=== PATIENT | male | born 2000 | race Caucasian/White ===

== ENCOUNTER 2019-09-16 15:19 | Emergency (ER) | payer SELFPAY ==
[2019-09-16 15:24] VITALS: BP 141/76
--- NOTE | 2019-09-16 16:30 | RADIOLOGY REPORT (SQ) ---
EXAM DESCRIPTION: FOOT RIGHT COMPLETE COMPLETED DATE/TIME: 09/16/2019 4:20 pm REASON FOR STUDY: pain, rolled foot COMPARISON: None. NUMBER OF VIEWS: Three views. TECHNIQUE: AP, lateral and oblique radiographic images acquired of the right foot. LIMITATIONS: None. FINDINGS: MINERALIZATION: Normal. BONES: No acute fracture or dislocation. No worrisome bone lesions. JOINTS: No effusions. SOFT TISSUES: No soft tissue swelling. No foreign body. OTHER: No other significant finding. IMPRESSION: NEGATIVE STUDY OF THE RIGHT FOOT. NO RADIOGRAPHIC EVIDENCE OF ACUTE INJURY. TECHNICAL DOCUMENTATION: JOB ID: [id number] 2010 [employer]- All Rights Reserved Reading location - IP/workstation name: [email or web address]
--- NOTE | 2019-09-16 16:49 | ER Document Report ---
HPI - HPI Patient complains to provider of: right foot pain Time Seen by Provider: 09/16/19 16:02 Onset: Yesterday Quality of pain: Achy Pain Level: 4 Context: 19-year-old male presents emergency department complaints of right foot pain. Reports he rolled his foot last week. Reports is been hurting since. Patient has been able to walk around without any problems. Denies past medical history of injury to the foot. No other complaints such as fever vomiting diarrhea. Associated Symptoms: None Exacerbated by: Walking Relieved by: Denies Similar symptoms previously: No Recently seen / treated by doctor: No - CONSTITUTIONAL Constitutional: DENIES: Fever - RESPIRATORY Respiratory: REPORTS: Coughing - today - DERM Skin Color: Normal Past Medical History - General Information source: Patient - Social History Smoking Status: Current Every Day Smoker Cigarette use (# per day): Yes Frequency of alcohol use: Social Drug Abuse: None Family History: None Patient has suicidal ideation: No Patient has homicidal ideation: No - Medical History Medical History: Negative Past Surgical History: Reports: Hx Orthopedic Surgery Vertical Provider Document - CONSTITUTIONAL Agree With Documented VS: Yes Exam Limitations: No Limitations General Appearance: WD/WN, No Apparent Distress - INFECTION CONTROL TRAVEL OUTSIDE OF THE [place] IN LAST 30 DAYS: No - HEENT HEENT: Atraumatic, Normocephalic. negative: Conjuctival Injection - NECK Neck: Supple - RESPIRATORY Respiratory: No Respiratory Distress - CARDIOVASCULAR Cardiovascular: Regular Rate - MUSCULOSKELETAL/EXTREMETIES Musculoskeletal/Extremeties: MAEW, FROM, Tender - Patient complains of right lateral foot pain no obvious deformity pedal pulse +3 cap refill less than 2 seconds. No erythema no swelling no warmth - NEURO Level of Consciousness: Awake, Alert, Appropriate Motor/Sensory: No Motor Deficit - DERM Integumentary: Warm, Dry Course - Re-evaluation Re-evalutation: 09/16/19 16:47 Patient instructed on negative foot x-ray. Instructed on ibuprofen rest ice packs follow-up with orthopedics as indicated for continued pain. He verbalized understand all instructions. Foot X-Ray 09/16/19 16:05 IMPRESSION: NEGATIVE STUDY OF THE RIGHT FOOT. NO RADIOGRAPHIC EVIDENCE OF ACUTE INJURY. - Vital Signs Vital signs: Temp Pulse Resp BP Pulse Ox 98.7 F 97 16 141/76 H 96 09/16/19 15:23 09/16/19 15:23 09/16/19 15:23 09/16/19 15:23 09/16/19 15:23 - Diagnostic Test Radiology reviewed: Image reviewed, Reports reviewed Discharge - Discharge Clinical Impression: Right foot pain Condition: Stable Disposition: HOME, SELF-CARE Instructions: Use of Xydp-Nln-Wgyhrok Ibuprofen ([facility]), Ice & Elevation ([facility]) Additional Instructions: *You have been evaluated for foot pain *Your x-ray was negative for an acute fracture *Rest/Ice/Elevate foot *Follow up with orthopedics *Take ibuprofen as indicated for pain *Return to ED for worsening condition, changes, needs Monitor your blood pressure. Your blood pressure was elevated today. This may be because you were anxious, in pain or because you need medication. It is important to follow up with your primary care provider for full evaluation. Forms: Elevated Blood Pressure
== END 2019-09-16 17:15 | disposition home or self-care (01) ==
LOC: ER 15:19
DX: M79.671 Pain in right foot (principal); X50.9XXA Other and unspecified overexertion or strenuous movements or postures, initial encounter; R05 Cough; F17.210 Nicotine dependence, cigarettes, uncomplicated
CPT/HCPCS: 99283

== ENCOUNTER 2019-10-13 22:02 | Emergency (ER) | payer SELFPAY ==
--- NOTE | 2019-10-13 22:34 | ER Document Report ---
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 States hearing is started to return in the left ear. He has not had cold or congestion recently. No fevers. Patient was feeling fine up until that point. No chest pain no shortness of breath. He was not using headphones. I have greeted and performed a rapid initial assessment of this patient. A comprehensive ED assessment and evaluation of the patient, analysis of test results and completion of the medical decision making process will be conducted by additional ED providers PHYSICAL EXAMINATION: Serous fluid is noted behind both tympanic membranes with some small air bubbles behind the left tympanic membrane. There is no visible cerumen impaction. No nystagmus. Patient is answering all questions appropriately he is moving all extremities individually and intact. No visible facial droop. No sensation change between the left and right sides of the face I have greeted and performed a rapid initial assessment of this patient. A comprehensive ED assessment and evaluation of the patient, analysis of test results and completion of medical decision making process will be conducted by an additional ED providers. TRAVEL OUTSIDE OF THE [place] IN LAST 30 DAYS: No - Related Data Allergies/Adverse Reactions: No Known Allergies Allergy (Verified 09/16/19 16:10) Past Medical History Past Surgical History: Reports: Hx Orthopedic Surgery Physical Exam - Vital signs Vitals: Temp Pulse Resp BP Pulse Ox 99.6 F 90 16 152/86 H 98 10/13/19 22:08 10/13/19 22:08 10/13/19 22:08 10/13/19 22:08 10/13/19 22:08 Course - Vital Signs Vital signs: Temp Pulse Resp BP Pulse Ox 99.6 F 90 16 152/86 H 98 10/13/19 22:08 10/13/19 22:08 10/13/19 22:08 10/13/19 22:08 10/13/19 22:08
[2019-10-13] MEDS ORDERED: NAPROXEN 250 MG TABLET PO ONE (22:39)
--- NOTE | 2019-10-13 23:30 | RADIOLOGY REPORT (SQ) ---
CT HEAD WITHOUT IV CONTRAST EXAM DATE: 10/13/2019 10:32 PM CDT HISTORY: Dizziness. COMPARISON: None. TECHNIQUE: CT scan of the brain without IV contrast. This exam was performed according to our departmental dose-optimization program, which includes automated exposure control, adjustment of the mA and/or kV according to patient size and/or use of iterative reconstruction technique. FINDINGS: The ventricles, cisterns, and sulci are age-appropriate. No evidence of acute infarction, intracranial hemorrhage, extra-axial fluid collection, or midline shift. There is opacification of left-sided ethmoid air cells. The paranasal sinuses are clear however. No depressed skull fracture. IMPRESSION: 1. No acute intracranial findings. 2. Findings suggestive of left-sided mastoiditis, age indeterminate.
[2019-10-14 00:28] LABS: HEMOGLOBIN 15.3 g/dL (13.5-17.0); RED BLOOD COUNT 5.27 10^6/uL (4.35-5.55); RED CELL DISTRIBUTION WIDTH 13.5 % (11.5-14.0)
[2019-10-14 00:33] LABS: HEMATOCRIT 44.4 % (37.9-51.0); MEAN CORPUSCULAR HEMOGLOBIN 29.1 pg (27.0-33.4); MEAN CORPUSCULAR HGB CONC 34.5 g/dL (32.0-36.0); MEAN CORPUSCULAR VOLUME 84 fl (80-97); PLATELET COUNT 227 10^3/uL (150-450); WHITE BLOOD COUNT 20.2 10^3/uL (4.0-10.5)
[2019-10-14] MEDS ORDERED: AMOXICILLIN TR/POT CLAVULANATE 875-125 MG TAB PO ONE (00:39)
[2019-10-14 00:46] LABS: ALBUMIN 4.7 g/dL (3.5-5.0); ALKALINE PHOSPHATASE 56 U/L (38-126); ANION GAP 7 (5-19); ASPARTATE AMINO TRANSFERASE 21 U/L (17-59); BILIRUBIN,TOTAL 0.9 mg/dL (0.2-1.3); BLOOD UREA NITROGEN 11 mg/dL (7-20); CALCIUM 9.5 mg/dL (8.4-10.2); CARBON DIOXIDE 26 mmol/L (22-30); CHLORIDE 104 mmol/L (98-107); GLUCOSE 101 mg/dL (75-110); POTASSIUM 4.3 mmol/L (3.6-5.0); TOTAL PROTEIN 7.5 g/dL (6.3-8.2)
[2019-10-14 00:55] LABS: ABSOLUTE LYMPHOCYTES# (MANUAL) 1.2 10^3/uL (0.5-4.7); ABSOLUTE MONOCYTES # (MANUAL) 1.4 10^3/uL (0.1-1.4); BAND NEUTROPHILS % (MANUAL) 2 % (3-5); BASOPHILS % (MANUAL) 0 % (0-2); EOSINOPHILS % (MANUAL) 2 % (0-6); LYMPHOCYTES % (MANUAL) 6 % (13-45); MONOCYTES % (MANUAL) 7 % (3-13); PLATELET COMMENT ADEQUATE; RBC MORPHOLOGY COMMENT NORMO-CYTIC/CHROMIC; SEGMENTED NEUTROPHILS % (MAN) 83 % (42-78); TOTAL CELLS COUNTED 100
[2019-10-14] MEDS ORDERED: CEFTRIAXONE 2 GM/D5W RTU 2 GM/50 ML RTUPB IV ONE (01:04)
--- NOTE | 2019-10-14 01:07 | ER Document Report ---
Entered by CARLITOS HARRIS SCRIBE 10/14/19 0025 Acting as scribe for:CHAPIS TONY IV, MD ED ENT - General Chief Complaint: Ear Pain Stated Complaint: EAR ACHE,LOSS OF HEARING,HEADACHE,BLURRED VISION Time Seen by Provider: 10/13/19 22:29 Primary Care Provider: SUSANA MOURA DO [ASSOCIATE] - Follow up in 3-5 days (follow up in 3 to 5 days if your symptoms are not improving) Mode of Arrival: Ambulatory Information source: Patient Notes: This 19 year old male patient with no significant past medical history presents to the ED today with complaints of sudden onset left ear pain with associated hearing loss in the left ear that occurred prior to arrival. 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 Patient also reports blurred vision and feeling lightheaded. He states that he used peroxide to clean his ear, but notes that his symptoms did not resolve. He denies cold symptoms or fever. Denies blurred vision at this time. TRAVEL OUTSIDE OF THE [place] IN LAST 30 DAYS: No - Related Data Allergies/Adverse Reactions: No Known Allergies Allergy (Verified 09/16/19 16:10) Past Medical History - Social History Smoking Status: Never Smoker Cigarette use (# per day): No Chew tobacco use (# tins/day): No Smoking Education Provided: No Family History: Reviewed & Not Pertinent Patient has suicidal ideation: No Patient has homicidal ideation: No - Medical History Medical History: Negative Past Surgical History: Reports: Hx Orthopedic Surgery Review of Systems - Review of Systems Constitutional: See HPI. denies: Fever EENT: See HPI, Ear pain, Other - Hearing loss in left ear. denies: Blurred vision Cardiovascular: See HPI, Lightheaded Respiratory: No symptoms reported Gastrointestinal: No symptoms reported Genitourinary: No symptoms reported Male Genitourinary: No symptoms reported Musculoskeletal: No symptoms reported Skin: No symptoms reported Hematologic/Lymphatic: No symptoms reported Neurological/Psychological: No symptoms reported -: Yes All other systems reviewed and negative Physical Exam - Vital signs Vitals: Temp Pulse Resp BP Pulse Ox 99.6 F 90 16 152/86 H 98 10/13/19 22:08 10/13/19 22:08 10/13/19 22:08 10/13/19 22:08 10/13/19 22:08 - General General appearance: Alert - HEENT Head: Normocephalic, Atraumatic Eyes: Normal, Other - No photophobia noted. Pupils: PERRL Tympanic membrane: Other - Left TM is bulging, erythematous, and opacified. Right TM is clear. Neck: Normal, Other - Moves neck normally.. No: Meningismus Notes: Mastoid regions are nontender to palpation bilaterally. No erythema present. - Respiratory Respiratory status: No respiratory distress Chest status: Nontender Breath sounds: Normal Chest palpation: Normal - Cardiovascular Rhythm: Regular Heart sounds: Normal auscultation Murmur: No Friction rub: No Gallop: None auscultated - Abdominal Inspection: Normal Distension: No distension Bowel sounds: Normal Tenderness: Nontender - Abdomen soft Organomegaly: No organomegaly - Back Back: Normal, Nontender - Extremities General upper extremity: Normal inspection General lower extremity: Normal inspection - Neurological Neuro grossly intact: Yes - Psychological Associated symptoms: Normal affect, Normal mood - Skin Skin Temperature: Warm Skin Moisture: Dry Skin Color: Normal Course - Re-evaluation Re-evalutation: 10/14/19 00:42 Results of ED MSE discussed with patient. All questions were answered prior to discharge. Emergency signs and symptoms, reasons to return to the emergency department discussed with patient. 10/14/19 01:05 Patient is elevated white count and left shift discussed with patient. Patient agreed to let this MD draw 2 blood cultures and give the patient a dose of Rocep hin IV in addition to starting him on Augmentin for his otitis media and mastoiditis. Patient denies cough or other respiratory complaints. Patient denies fever. Patient denies COVID 19 exposure. Again patient was educated on emergency signs and symptoms, reasons to return to the emergency department. - Vital Signs Vital signs: Temp Pulse Resp BP Pulse Ox 99.6 F 90 16 152/86 H 98 10/13/19 22:08 10/13/19 22:08 10/13/19 22:08 10/13/19 22:08 10/13/19 22:08 - Laboratory Result Diagrams: 10/14/19 00:15 10/14/19 00:15 Laboratory results interpreted by me: 10/14/19 00:15 WBC 20.2 H Seg Neuts % (Manual) 83 H Band Neutrophils % 2 L Lymphocytes % (Manual) 6 L Abs Neuts (Manual) 17.2 H - Diagnostic Test Radiology reviewed: Reports reviewed Discharge - Discharge Clinical Impression: Mastoiditis of left side Left otitis media Qualifiers: Otitis media type: unspecified Qualified Code(s): H66.92 - Otitis media, unspecified, left ear Condition: Good Disposition: HOME, SELF-CARE Additional Instructions: Return to the Emergency Department without delay if any worse. HOME CARE INSTRUCTIONS & INFORMATION: Thank you for choosing us for your medical needs. We hope you're satisfied with the care you received. After you leave, you must properly care for your problem and, at the same time, observe its progress. Any condition can change. Some illnesses can change rapidly over hours or days. If your condition worsens, return to the Emergency Department or see your physician promptly. ABOUT YOUR X-RAYS AND EKG'S: If you had an EKG or X-rays taken, they have been read by the Emergency Physician. The X-rays and EKG's will also be read by a Radiologist or Print Line Tailer within 24 hours. If discrepancies are noted, you will be notified by telephone. Please be certain the ED has a correct telephone number & address where you can be reached. Also, realize that some fractures or abnormalities do not show up on initial X-rays. If your symptoms continue, see your physician. ABOUT YOUR LABORATORY TEST: If you had laboratory tests, the results have been reviewed by the Emergency Physician. Some test results (for example cultures) may not be available for several days. You will be contacted if any test result shows you need additional treatment. Please be certain the ED has a correct telephone number and address where you can be reached. ABOUT YOUR MEDICATIONS: You will receive instructions on how to take your medicine on the prescription label you receive. Additional information may be provided by the Pharmacy. If you have questions afterwards, call the ED for clarification or further instructions. Some prescribed medications may cause drowsiness. Do not perform tasks such as driving a car or operating machinery without consulting your Pharmacist. If you feel you need a refill of pain medication, your condition will need re-evaluation. Please do not call for a refill of any medication. ABOUT YOUR SIGNATURE: Signature of this document acknowledges to followin. Understanding that you received emergency treatment and that you may be released before al medical problems are known or treated. Please be certain the ED has a correct phone number & address where you can be reached. 2. Acknowledgement that you will arrange for follow-up care as recommended. 3. Authorization for the Emergency Physician to provide information to your follow-up Physician in order to maximize your care. AT ANY TIME, IF YOUR SYMPTOMS CHANGE SIGNIFICANTLY OR WORSEN OR YOU DEVELOP NEW SYMPTOMS, RETURN TO THE EMERGENCY DEPARTMENT IMMEDIATELY FOR RE-EVALUATION. OUR GOAL IS TO PROVIDE EXCELLENT MEDICAL CARE! WE HOPE THAT WE HAVE MET YOUR EXPECTATIONS DURING YOUR EMERGENCY DEPARTMENT VISIT AND THAT YOU FEEL YOU HAVE RECEIVED EXCELLENT CARE! Otitis Media You have a middle ear infection (otitis media). This is usually a complication of a cold or sore throat. The middle ear cavity becomes filled with infection. Pressure and stretching of the ear drum cause pain. Antibiotics are required. A 10 day course is usually prescribed. A decongestant may be recommended if you have a "runny nose." You may need anesthetic drops or other pain medication. A follow-up exam may be recommended to make sure the infection has completely cleared. If the ear begins to drain, it means the ear drum has ruptured. This will usually heal spontaneously. However, it means you should keep the ear dry until re-examined by a doctor. Call the physician or return for examination at once if there is severe headache, stiff neck, confusion, increasing fever, or dizziness. You should improve significantly within two days. If you're not better, call the doctor. Prescriptions: Amoxicillin/Potassium Clav [Augmentin 875-125 Tablet] 1 tab PO BID 10 Days #20 tab Referrals: SUSANA MOURA DO [ASSOCIATE] - Follow up in 3-5 days (follow up in 3 to 5 days if your symptoms are not improving) I personally performed the services described in the documentation, reviewed and edited the documentation which was dictated to the scribe in my presence, and it accurately records my words and actions.
[2019-10-14 03:28] VITALS: BP 134/72
== END 2019-10-14 03:26 | disposition home or self-care (01) ==
LOC: ER 22:02
DX: H70.92 Unspecified mastoiditis, left ear (principal); H66.92 Otitis media, unspecified, left ear; R42 Dizziness and giddiness
CPT/HCPCS: 99283; 96365; 36415; 87040; 85025; 80053; 70450; J0696; J3490

== ENCOUNTER 2020-05-28 16:29 | Emergency (ER) | payer SELFPAY ==
[2020-05-28] MEDS ORDERED: OXYCODONE-ACETAMINOPHEN 5-325 MG TABLET PO ONE (16:36)
[2020-05-28] MEDS ORDERED: MORPHINE SULFATE 10 MG/ML INJ IV ONE (16:38)
--- NOTE | 2020-05-28 16:38 | ER Document Report ---
ED Medical Screen (RME) - General Stated Complaint: BURN TO LEFT HAND Time Seen by Provider: 05/28/20 16:33 Mode of Arrival: Ambulatory Information source: Patient Notes: Patient was attempting to make candles and accidentally poured hot wax on the fingers of the left hand. Patient with open blisters to the distal tips of the left second and third fingers. Patient complains of numbness to the tips of the left second and third finger. Patient with erythema to the second third fourth and fifth fingers of the left hand. Patient's tetanus immunizations currently up-to-date. I have greeted and performed a rapid initial assessment of this patient. A comprehensive ED assessment and evaluation of the patient, analysis of test results and completion of the medical decision making process will be conducted by additional ED providers. TRAVEL OUTSIDE OF THE [place] IN LAST 30 DAYS: No - Related Data Allergies/Adverse Reactions: No Known Allergies Allergy (Verified 09/16/19 16:10) Past Medical History Past Surgical History: Reports: Orthopedic Surgery Physical Exam - Vital signs Vitals: Temp Pulse Resp BP Pulse Ox 98.6 F 76 18 142/97 H 95 05/28/20 16:33 05/28/20 16:33 05/28/20 16:33 05/28/20 16:33 05/28/20 16:33 - General General appearance: Alert, Anxious In distress: Mild Notes: Patient with burn to left hand, open blisters to the dorsal tips of the left second and third finger, burn does appear to be circumferential to the fingertips of the second and third fingers Course - Vital Signs Vital signs: Temp Pulse Resp BP Pulse Ox 98.6 F 76 18 142/97 H 95 05/28/20 16:33 05/28/20 16:33 05/28/20 16:33 05/28/20 16:33 05/28/20 16:33
[2020-05-28] MEDS ORDERED: KETOROLAC TROMETHAMINE INJ/PF 30 MG/1 ML SDV IV ONE (17:24)
--- NOTE | 2020-05-28 18:34 | ER Document Report ---
ED General - General Chief Complaint: Burn Stated Complaint: BURN TO LEFT HAND Time Seen by Provider: 05/28/20 16:33 Mode of Arrival: Ambulatory Notes: Patient presents to the ER for evaluation of burn to the second and third fingers of the left hand. The patient states he was melting wax to make a candle when he spilled the wax on his fingers. He denies numbness. The patient states he is in pain. There are no facial smith noted. No inhalation smith noted. Nursing notes reviewed and past medical, social, and family histories reviewed and validated. TRAVEL OUTSIDE OF THE [place] IN LAST 30 DAYS: No - Related Data Allergies/Adverse Reactions: No Known Allergies Allergy (Verified 09/16/19 16:10) Past Medical History - General Information source: Patient - Social History Smoking Status: Current Every Day Smoker Cigarette use (# per day): Yes - 20 Chew tobacco use (# tins/day): No Smoking Education Provided: Yes Frequency of alcohol use: Social Drug Abuse: Marijuana Family History: None Patient has suicidal ideation: No Patient has homicidal ideation: No - Past Medical History Cardiac Medical History: Reports: None Pulmonary Medical History: Reports: None EENT Medical History: Reports: None Neurological Medical History: Reports: None Endocrine Medical History: Reports: None Renal/ Medical History: Reports: None Malignancy Medical History: Reports None GI Medical History: Reports: None Musculoskeletal Medical History: Reports None Skin Medical History: Reports None Psychiatric Medical History: Reports: None Traumatic Medical History: Reports: None Infectious Medical History: Reports: None Past Surgical History: Reports: Hx Orthopedic Surgery - Immunizations Immunizations up to date: Yes Hx Diphtheria, Pertussis, Tetanus Vaccination: Yes Review of Systems - Review of Systems Notes: Constitutional: Negative for fever. HENT: Negative for sore throat. Eyes: Negative for visual changes. Cardiovascular: Negative for chest pain. Respiratory: Negative for shortness of breath. Gastrointestinal: Negative for abdominal pain, vomiting or diarrhea. Genitourinary: Negative for dysuria. Musculoskeletal: Negative for back pain. Skin: Positive burn to left hand. Neurological: Negative for headaches, weakness or numbness. 10 point ROS negative except as marked above and in HPI. Physical Exam - Vital signs Vitals: Temp Pulse Resp BP Pulse Ox 98.6 F 76 18 142/97 H 95 05/28/20 16:33 05/28/20 16:33 05/28/20 16:33 05/28/20 16:33 05/28/20 16:33 - Notes Notes: CONSTITUTIONAL: Well appearing in no acute distress SKIN: There is a second-degree burn with ruptured blisters over the dorsum of the left second and third fingers in the approximate area of the DIP of both fingers. There is burn erythema over the pad of the fingers. There is good distal circulation and sensation noted. EYES: Extraocular movements are grossly intact, clear conjunctiva HENT: Normocephalic, atraumatic, moist mucus membranes NECK: No obvious swelling, normal range of motion PULMONARY: Normal chest rise and fall, no respiratory distress or stridor CARDIOVASCULAR: Regular rate, distal extremities are warm and well perfused NEUROLOGIC: Normal speech, moves all extremities MUSCULOSKELETAL: No gross deformities, atraumatic PSYCHIATRIC: Normal mood and affect Course - Re-evaluation Re-evalutation: 05/28/20 18:34 Rechecked patient who has responded well to treatment in the ER. Discussed with patient: results, diagnosis, treatment plan, and need for follow-up. Return to the emergency department warnings were given. All questions and concerns were addressed. The plan is agreed with and understood. Patient is stable and ready for discharge. - Vital Signs Vital signs: Temp Pulse Resp BP Pulse Ox 98.2 F 76 18 142/97 H 95 05/28/20 16:39 05/28/20 16:33 05/28/20 16:33 05/28/20 16:33 05/28/20 16:33 - Consults [facility] Consult Time consulted: 18:35 Reason for consultation: 05/28/20 18:00 This case was discussed with Dr. Young who suggests we use a Silvadene dressing and pain control. The patient is to follow-up with primary care or urgent care for a recheck in the next 2 to 3 days. I have discussed this with the patient who has verbally agreed to follow-up. He will return to the emergency room if he has no other options. Discharge - Discharge Clinical Impression: Partial thickness burn Condition: Good Disposition: HOME, SELF-CARE Instructions: Silvadene Cream ([facility]), Smith ([facility]) Additional Instructions: It is important that you follow-up with primary care, urgent care, back to the emergency room in the next 3 days for a recheck. Prescriptions: Hydrocodone/Acetaminophen [Mchenry 5-325 mg Tablet] 1 tab PO Q6HP PRN 3 Days #12 tablet PRN Reason: For Pain Silver Sulfadiazine [Silvadene 1% Cream 50 gm Tube] 1 applic TP BID #50 grams
[2020-05-28 18:49] VITALS: BP 119/70
== END 2020-05-28 19:04 | disposition home or self-care (01) ==
LOC: ER 16:29
DX: T23.232A Burn of second degree of multiple left fingers (nail), not including thumb, initial encounter (principal); X12.XXXA Contact with other hot fluids, initial encounter; F17.210 Nicotine dependence, cigarettes, uncomplicated
CPT/HCPCS: 99284; 96374; 96375; J1885; J2270